=== PATIENT | male | born 1970 | race Caucasian/White ===

== ENCOUNTER → 2017-12-27 | Outpatient (CLI) | payer MEDICAID ==
[2017-12-27 16:03] LABS: BASOPHILS % (AUTO) 0 % (0-1); EOSINOPHILS # (AUTO) 0.1 X10'3 (0-0.9); EOSINOPHILS % (AUTO) 1.1 % (0-6); HEMATOCRIT 28.8 % (42.0-52.0); HEMOGLOBIN 9.9 g/dl (14.0-17.9); LYMPHOCYTES # (AUTO) 0.9 X10'3 (1.1-4.8); LYMPHOCYTES % (AUTO) 9.8 % (21-51); MEAN CORPUSCULAR HEMOGLOBIN 32.8 PG (27.0-31.0); MEAN CORPUSCULAR HGB CONC 34.4 % (33.0-36.5); MEAN CORPUSCULAR VOLUME 95.3 FL (78-98); MEAN PLATELET VOLUME 6.6 FL (7.4-10.4); MONOCYTES # (AUTO) 1.6 X10'3 (0-0.9); MONOCYTES % (AUTO) 17.9 % (2-12); NEUTROPHILS # (AUTO) 6.2 X10'3 (1.8-7.7); NEUTROPHILS % (AUTO) 71.2 % (42-75); PLATELET COUNT 371 X10'3 (140-440); RED BLOOD COUNT 3.02 X10'6 (4.70-6.10); RED CELL DISTRIBUTION WIDTH 17.1 % (11.5-14.5); WHITE BLOOD COUNT 8.7 X10'3 (4.5-11.0)
== END | disposition home or self-care (01) ==
LOC: LAB 15:42
PROVIDERS: ATTEND Specialist
DX: C92.00 Acute myeloblastic leukemia, not having achieved remission (principal); Z87.891 Personal history of nicotine dependence
CPT/HCPCS: 36415; 85025

== ENCOUNTER 2018-08-19 09:21 | Inpatient (IN) | payer MEDICAID | END 2018-08-25 17:20 | disposition home or self-care (01) | LOC: ER 09:21 → ED HOLD 15:50 → SUR 3N 19:56 ==

== ENCOUNTER → 2023-07-29 | Outpatient (CLI) | payer MEDICAID ==
[~2023-07-29] VITALS: Ht 188 cm; Wt 86.2 kg
[~2023-07-29] MED LIST: HYDR-4353 PO; NO HOME MEDS; PRED20TA PO; cefazolin 2gm/D5W 100mL 100 ML IV ONE; famotidine 20mg tablet PO ONE; ringers solution, lacted 1,000 ML IV SCH
[2023-07-29 12:31] LABS: BASOPHILS # (AUTO) 0.1 X10'3 (0-0.2); BASOPHILS % (AUTO) 1.1 % (0-1); EOSINOPHILS # (AUTO) 0.3 X10'3 (0-0.9); EOSINOPHILS % (AUTO) 6.7 % (0-6); LYMPHOCYTES # (AUTO) 1.5 X10'3 (1.1-4.8); LYMPHOCYTES % (AUTO) 32.9 % (21-51); MEAN CORPUSCULAR HEMOGLOBIN 31.1 PG (27.0-31.0); MEAN CORPUSCULAR HGB CONC 33.1 g/dL (33.0-36.5); MEAN CORPUSCULAR VOLUME 93.9 FL (78-98); MEAN PLATELET VOLUME 6.6 FL (7.4-10.4); MONOCYTES # (AUTO) 0.4 X10'3 (0-0.9); MONOCYTES % (AUTO) 8.1 % (2-12); NEUTROPHILS # (AUTO) 2.4 X10'3 (1.8-7.7); NEUTROPHILS % (AUTO) 51.2 % (42-75); PRE OP HEMATOCRIT 40.5 % (42.0-52.0); PRE OP HEMOGLOBIN 13.4 g/dL (14.0-17.9); PRE OP PLATELET COUNT 323 X10'3 (140-440); PRE OP WHITE BLOOD COUNT 4.7 10'3 (4.8-10.8); RED BLOOD COUNT 4.32 X10'6 (4.70-6.10); RED CELL DISTRIBUTION WIDTH 15.2 % (11.5-14.5)
[2023-07-29 12:40] LABS: ALBUMIN 3.5 G/DL (3.4-5.0); ALBUMIN/GLOBULIN RATIO 1.1 (1.1-1.5); ALKALINE PHOSPHATASE 129 IU/L (46-116); BLOOD UREA NITROGEN 16 MG/DL (7-18); BUN/CREATININE RATIO 12.3 (10.0-20.0); CALCIUM 8.4 MG/DL (8.5-10.1); CHLORIDE 106 MMOL/L (99-107); PRE OP ALT 21 U/L (30-65); PRE OP ANION GAP 8 (8-16); PRE OP AST 18 U/L (10-37); PRE OP BILIRUB, TOTAL 0.3 MG/DL (0.0-1.0); PRE OP GLUCOSE 90 MG/DL (70-104); PRE OP POTASSIUM 4.3 MMOL/L (3.4-5.1); PRE OP SODIUM 144 MMOL/L (135-145); TOTAL CARBON DIOXIDE 29.7 MMOL/L (24-32); TOTAL PROTEIN 6.8 G/DL (6.4-8.2); eGFR 58 ML/MIN
== END | disposition home or self-care (01) ==
LOC: LAB 10:31 → EDSTATUS 07-31 13:30
PROVIDERS: ATTEND Surgery
DX: Z01.818 Encounter for other preprocedural examination (principal); K40.90 Unilateral inguinal hernia, without obstruction or gangrene, not specified as recurrent
CPT/HCPCS: 80053; 85025; 93005; J0690; J7120

== ENCOUNTER 2024-01-13 01:06 | Emergency (ER) | payer MEDICAID ==
[~2024-01-13] VITALS: Ht 188 cm; Wt 81.1 kg
[~2024-01-13 01:06] MED LIST changes: -HYDR-4353 PO; -PRED20TA PO; -cefazolin 2gm/D5W 100mL 100 ML IV ONE; -famotidine 20mg tablet PO ONE; -ringers solution, lacted 1,000 ML IV SCH
[2024-01-13 01:12] VITALS: TEMP 97.9
[2024-01-13] MEDS: morphine 10mg/ml inj. IV ONE (01:47)
[2024-01-13] MEDS: normal saline 1000ML IV soln IVB ONE ×3 (01:47→04:29)
[2024-01-13] MEDS: ondansetron/PF 4mg/2ml inj IV ONE (01:47)
[2024-01-13 01:59] LABS: D-DIMER 3.74 MG/L FEU (0-0.50)
[2024-01-13 02:12] LABS: ALANINE AMINOTRANSFERASE 37 U/L (12-78); ALBUMIN 2.5 G/DL (3.4-5.0); ALBUMIN/GLOBULIN RATIO 0.6 (1.1-1.5); ALKALINE PHOSPHATASE 183 IU/L (46-116); ANION GAP 9 (8-16); ASPARTATE AMINO TRANSFERASE 16 U/L (10-37); BILIRUBIN,TOTAL 0.6 MG/DL (0.1-1.0); BLOOD UREA NITROGEN 20 MG/DL (7-18); BUN/CREATININE RATIO 11.6 (10.0-20.0); CALCIUM 8.9 MG/DL (8.5-10.1); CHLORIDE 100 MMOL/L (99-107); CREATININE 1.72 MG/DL (0.60-1.10); GLUCOSE 141 MG/DL (70-104); POTASSIUM 3.5 MMOL/L (3.5-5.1); SODIUM 135 MMOL/L (135-145); TOTAL CARBON DIOXIDE 26.3 MMOL/L (24-32); TOTAL PROTEIN 6.6 G/DL (6.4-8.2); eCRCL 56 ML/MIN; eGFR 41 ML/MIN
[2024-01-13 02:16] LABS: MAGNESIUM 1.6 MG/DL (1.5-2.4)
[2024-01-13] MEDS: HYDROmorphone 1 mg/ml syringe IV ONE (03:07)
[2024-01-13] MEDS: CefTRIAXone 2gm/D5W 50ml BAG 50 ML IV ONE (03:42)
[2024-01-13 05:08] LABS: BILIRUBIN,URINE NEGATIVE (Neg); CLARITY,URINE SLIGHTLY CLOUDY (Clear); COLOR,URINE YELLOW (Yellow); GLUCOSE, URINE 100 mg/dl (Neg); KETONES,URINE NEGATIVE (Neg); LEUKOCYTE ESTERASE ,URINE TRACE (Neg); NITRITES, URINE POSITIVE (Neg); OCCULT BLOOD,URINE MODERATE (Neg); PROTEIN,URINE 100 mg/dl (Neg); UROBILINOGEN,URINE 0.2 E.U/dL (0.2-1.0)
[2024-01-13 05:26] LABS: UA COLLECTION TYPE CLN CATCH MIDSTREAM
[2024-01-13] MEDS ORDERED: iohexol 350MG/ML 100ml bottle IV ONE (05:27)
[2024-01-13 05:29] LABS: BACTERIA,URINE 2+ /HPF (Neg); MUCUS STRANDS FEW /LPF (Neg); RENAL CELLS, URINE FEW /HPF; SQUAMOUS EPITHELIAL CELL,UR MODERATE /LPF (FEW); TRANSITIONAL EPI CELLS,URINE MODERATE /HPF
[2024-01-13 07:14] LABS: HEMATOCRIT 39.5 % (43.5-53.7); HEMOGLOBIN 13.1 G/DL (12.5-16.3); MEAN CORPUSCULAR HGB CONC 33.2 % (32-36); MEAN CORPUSCULAR VOLUME 93.4 FL (81-97); RED BLOOD COUNT 4.23 X10'6 (4.30-5.90); WHITE BLOOD COUNT 6.5 X10'3 (4.5-11.0)
[2024-01-13 07:15] LABS: MM NEUTROPHILS % (MANUAL) 72 % (42-75); MM TOTAL CELLS COUNTED 100; PLATELET COUNT 238 X10'3 (130-400); RED CELL DISTRIBUTION WIDTH 15.3 % (11-16)
[2024-01-13 07:16] LABS: MM BANDS% (MANUAL) 5 % (0-5); MM BASOPHILS % (MANUAL) 0 % (0-1); MM EOSINOPHILS % (MANUAL) 0 % (0-6); MM LYMPHOCYTES % (MANUAL) 11 % (21-51); MM METAMYLEOCYTES% (MANUAL) 1 % (0-0); MM MONOCYTES % (MANUAL) 10 % (2-12)
[2024-01-13 07:17] LABS: MM PLATELET ESTIMATE NORMAL; MM POLYCHROMASIA 1+; MM RBC MORPHOLOGY PERF
[2024-01-13 07:34] VITALS: BP 109/79; PULSE 78; RESP 17; O2SAT 98
[2024-01-13] MEDS ORDERED: AMOX-117 PO (08:28)
== END 2024-01-13 17:53 | disposition left against medical advice (07) ==
LOC: ER 01:07
DX: J90 Pleural effusion, not elsewhere classified (principal); N39.0 Urinary tract infection, site not specified; M25.512 Pain in left shoulder; G89.29 Other chronic pain; M54.2 Cervicalgia; M54.9 Dorsalgia, unspecified; F17.210 Nicotine dependence, cigarettes, uncomplicated; Z88.1 Allergy status to other antibiotic agents; Z79.2 Long term (current) use of antibiotics
CPT/HCPCS: 36415; 71045; 71250; 71275; 74176; 80053; 81001; 83735; 84145; 84484; 85007; 85025; 85379; 87088; 93005; 96361; 96365; 96375; 99285; J0696; J1170; J2274; J2405; J7030; Q9967

== ENCOUNTER 2024-07-20 10:16 | Emergency (ER) | payer MEDICAID ==
[~2024-07-20] VITALS: Ht 185.4 cm; Wt 73.3 kg
[2024-07-20 10:27] VITALS: TEMP 97.3
[2024-07-20 12:42] VITALS: BP 113/85; PULSE 105; RESP 19; O2SAT 95
== END 2024-07-20 12:09 | disposition left against medical advice (07) ==
LOC: ER 10:16
DX: R05.9 Cough, unspecified (principal); Z53.21 Procedure and treatment not carried out due to patient leaving prior to being seen by health care provider; Z88.1 Allergy status to other antibiotic agents

== ENCOUNTER 2025-01-06 21:10 | Emergency (ER) | payer MEDICAID ==
[~2025-01-06] VITALS: Ht 190.5 cm; Wt 79.3 kg
[2025-01-06 21:28] VITALS: BP 148/89; PULSE 90; RESP 18; TEMP 98; O2SAT 100
[2025-01-06] MEDS ORDERED: SULF1TAB49 PO (23:03)
--- NOTE | 2025-01-06 23:04 | Physician Documentation ---
History of Present Illness ~ Chief Complaint: Finger pain Stated Complaint: FINGER PAIN Time Seen by MD: 21:41 Primary Medical Doctor: NONE Source: patient Mode of Arrival: POV Exam Limitations: no limitations HPI 54-year-old male with finger infection near the nail bed from biting his fingernails. He has experienced pain and swelling with purulent drainage noted underneath the skin for a couple of days. No fevers Tetanus within 5 years: No (Didnt ask) Medication Reconciliation Allergies: Coded Allergies: ciprofloxacin (Verified Adverse Reaction, Unknown, TACHYCARDIA, 01/06/25) CALLED 07/30/23 TO CLARIFY, INCREASED HEART RATE Scheduled Sulfamethoxazole/Trimethoprim (Bactrim Ds Tablet), 1 TAB PO Q12H Miscellaneous Medications Home Med List (No Home Medications), (Reported) Past Medical History Past Medical History: Chronic Back Pain, Leukemia Past Surgical History: other Alcohol Use: None Drug Use: none Lives In: Home Occupation: employed Review of Systems All Other Systems at this time: Reviewed and Negative Integumentary: Reports: see HPI Physical Exam Vital Signs: RN Vital Signs have been reviewed: Yes, Temperature: 98.0, Source: Temporal, Heart Rate: 90, Respiratory Rate: 18, BP: 148/89, Pulse Oximetry: 100, Weight: 79.300 General Appearance: alert, WD/WN, no apparent distress Respiratory: no respiratory distress Chest: no accessory muscle use Nail: paronychia Nail Bed: normal inspection Distal Function: normal pulse, normal cap. refill, normal motor function Procedures I&D Procedure : Site: Right index finger Anesthesia: Lidocaine w/ Epi Volume Anesthetic (mls): 0 Blade Size: 11 Prep/Supplies: betadine prep, dressing applied Incision: blood drained Tolerated Procedure Well?: yes, no complications Procedure Note Tolerated okay attempted with 18 gauge without lidocaine no pus drained discussed warm compress follow up with primary care and antibiotics Progress Results/Orders Results/Orders Vital Signs 01/06/25 21:28 Temp 98.0 Pulse 90 Resp 18 B/P (MAP) 148/89 Pulse Ox 100 Medical Decision Making Findings Tried to use a 18 gauge to poke fluctuance at nail bed patient did not tolerate ended up using 0.25 lidocaine near site to use poke with 11 blade some blood discharge patient tolerated okay but will soak keep bandage on paronychia and take antibiotics. Departure Time of Disposition: 23:02 Disposition: 01 HOME / SELF CARE / HOMELESS Impression: Primary Impression: Paronychia of finger Condition: Stable Discharge Instructions: Paronychia Additional Instructions: Finger a couple of times a day keep dressing on it with your not soaking and take antibiotics as prescribed Referrals: NO PRIMARY CARE PROVIDER (PCP) Prescriptions Sulfamethoxazole/Trimethoprim (Bactrim Ds Tablet) 800 Mg-160 Mg Tablet 1 TAB PO Q12H for 7 Days, #14 TAB Prov: LEANN KAUR NP 01/06/25 Education Educated: Patient Educated regarding: diagnosis, treatment, need for follow up Signature Scribe Signature: No scribe Attestation: The note accurately reflects work and decisions made by me.Leann PAULINO 01/06/25 23:04 LEANN KAUR NP Jan 06, 2025 23:04
== END 2025-01-06 23:16 | disposition home or self-care (01) ==
LOC: ER 21:11
DX: L03.011 Cellulitis of right finger (principal); Z88.1 Allergy status to other antibiotic agents
CPT/HCPCS: 10060; 99283